=== PATIENT | female | born 1985 | race Caucasian/White ===

== ENCOUNTER → 2020-03-14 09:57 | Outpatient (CLI) | payer BC, SELFPAY ==
[2020-03-14 12:27] LABS: Hematocrit 37.9 % (36-46); Hemoglobin 12.5 g/dL (12.0-16.0); Mean Corpuscular HGB Conc 33.1 % (30-36); Mean Corpuscular Hemoglobin 28.3 PG (26-34); Mean Corpuscular Volume 85.6 fL (80-100); Platelet Count 230 X10^3/uL (150-400); Red Blood Cell Count 4.42 X10^6/uL (4.0-5.2); Red Cell Distribution Width 12.7 % (11.6-14.8); White Blood Cell Count 6.5 X10^3/uL (4.5-11.0)
[2020-03-14 12:45] LABS: Hemoglobin A1C% w Est Avg Glu 5.1 % (4.0-6.0)
[2020-03-14 13:07] LABS: Alanine Aminotransferase 15 IU/L (<35); Albumin 3.7 g/dL (3.5-5.0); Albumin Globulin Ratio 1.2 (1.0-2.8); Alkaline Phosphatase 62 U/L (38-126); Aspartate Aminotransferase 20 IU/L (14-36); BUN Creatinine Ratio 23.7 (6-22); Bilirubin Total 0.4 mg/dL (0.2-1.3); Blood Urea Nitrogen 14 mg/dL (7-17); Calcium 9.1 mg/dL (8.4-10.2); Carbon Dioxide 25 mmol/L (22-32); Chloride 107 mmol/L (98-107); Cholesterol 186 mg/dL (140-199); Estimated Glomerular Filt Rate > 60.0 mL/min (>60); Globulin 3.1 g/dL (1.7-4.1); Glucose 73 mg/dL (70-100); HDL Cholesterol 54 mg/dL (40-60); HEMOLYSIS < 15 (0-50); LDL Cholesterol Calculated 100 mg/dL (<100); Potassium 4.2 mmol/L (3.4-5.1); Sodium 138 mmol/L (137-145); Total Protein 6.8 g/dL (6.3-8.2); Triglycerides 159 mg/dL (35-150)
[2020-03-14 13:43] LABS: TSH w/ Reflex to FT4 3.01 uIU/mL (0.47-4.68)
== END ==
PROVIDERS: PCP Registered Nurse Diabetes Educator; Referring Provider Obstetrics & Gynecology; Visit Provider Obstetrics & Gynecology
DX: E28.2 Polycystic ovarian syndrome (principal); E66.9 Obesity, unspecified; Z00.00 Encounter for general adult medical examination without abnormal findings
CPT/HCPCS: 36415; 80053; 80061; 82306; 83036; 84443; 85027

== ENCOUNTER → 2020-06-12 14:58 | Outpatient (CLI) | payer BC, SELFPAY ==
--- NOTE | 2020-06-12 15:03 | DIET.PN ---
Dietary Progress Note Assessment: 34y F referred to nutrition by PCP for help with weight loss related to PCOS and psoriatic arthritis. 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 PCOS Hx: started menstruating heavily in 6th grade, amenhhorea in 8th grade, dx c PCOS, has been on BC since then, stopped for a while but acne got bad so has started again (since 2014) Pt currently going to therapy, quite insightful, and on adderall (not on metformin, didn't like it) Psoriatic Arthritis Hx: in SI joint, discovered by visiting rhumatologist Weight Hx: pt hasn't been below 200# since middle school. Has not been under 260# since 2010, pt is currently 266# down from 283# since spring, partly due to [facility] soy (stopped recently) and partly due to Adderall. Pt went to [employer], moved here from [place], [place] in August 2019. Usual Day: wakes 630-730am, gets out of bed 8am, gets ready for day Makes Breakfast: breakfast shake- collagen peptides, almond milk (or lactaid), frozen fruit, emergen-c or pb&j sandwich, a couple sausage and toast, oatmeal c premier protein gets to work 9am, works until noon then has lunch lunch- pb&j or tuna sandwich, half apple, small bag carrots, dill pickle chips works again until 4-5pm goes home to figure out dinner- snacks sometimes, crackers cheese and sausage Dinner 5-8pm: meatballs c veggies and orzo, hamburgers, fish, mini red olivo pizza some evening cravings, notices ADHD meds start to wear off- brownie dough goes to bed 1030pm pt is good water drinker also plain fizzy, no coffee Likes: carrots, snap peas, onions Likes: grapes, apples doesn't like tart flavors-not big burns fan no cooked spinach, brussels sprouts, artichokes, olives, doesn't like salads as meals doesn't eat enough beans but more open than used to be- Vagabond's chili, canned chilis, hummus, refried beans, doesn't like yogurt loves buttermilk ranch aversion to chicken sort of, but not liked baked feels like she eats too much processed meat products: LS carrillo, kielbasa, sausages WT: 266# UBW: 283# BMI:48 Labs: A1c 5.1 Nutrition Diagnosis: morbid obesity r/t PCOS and undesirable food choices aeb pt has BMI 48, hx of food power struggles c etoh using parent, pt reliant on processed foods such as bread, pizza, sausages. Interventions: 1. To support weight regulation, educated pt on plate balance using handout and food models. Encouraged pt to create meals and snacks which are 1/4 pro, 1/4 cho, and 1/2 F/nonstarchy veggies to ensure nutritional adequacy and appetite satisfaction. 2. To support weight regulation, using handout, introduced pt to hunger scale to start to identify her hunger and fullness cues. Pt will start eating at a 3 and stopping at an 8 to better understand ideal meal timing and portion sizes for her body. Pt will use hunger scale to identify when she is emotional/boredom/mindlessly eating and will discuss this with her therapist as desired to start developing better coping mechanisms that are not food related. 3. To support weight regulation and insulin resistance, encouraged pt to increase fiber intake. Provided handout and goal of 25g fiber per day. EER: 95g PRO (0.8g/kg), 30-45g CHO per meal, 25g fiber per day Monitoring/Evaluations: f/u in 3w to assess progress and problem solve barriers, add peppermint and green or oolong tea
== END ==
PROVIDERS: PCP Registered Nurse Diabetes Educator; Referring Provider Registered Nurse Diabetes Educator; Visit Provider Registered Nurse Diabetes Educator
DX: E28.2 Polycystic ovarian syndrome (principal); L40.50 Arthropathic psoriasis, unspecified; E66.9 Obesity, unspecified; Z68.42 Body mass index [BMI] 45.0-49.9, adult; Z71.3 Dietary counseling and surveillance
CPT/HCPCS: 97802

== ENCOUNTER → 2020-06-12 15:00 | Outpatient (CLI) | payer BC, SELFPAY ==
[2020-06-12 17:57] LABS: Add Manual Diff / Slide Review NO; Basophils Absolute Auto 0 /uL (0-100); Basophils Percent Auto 0.4 % (0-2); Eosinophils Absolute Auto 200 /uL (0-450); Eosinophils Percent Auto 2.3 % (2-4); Hematocrit 37.6 % (36-46); Hemoglobin 12.7 g/dL (12.0-16.0); Lymphocytes Absolute Auto 1900 /uL (1100-4500); Lymphocytes Percent Auto 24.9 % (25-40); Mean Corpuscular HGB Conc 33.8 % (30-36); Mean Corpuscular Hemoglobin 28.5 PG (26-34); Mean Corpuscular Volume 84.3 fL (80-100); Monocytes Absolute Auto 400 /uL (0-900); Monocytes Percent Auto 4.5 % (3-14); Neutrophils Absolute Auto 5300 /uL (1500-7000); Neutrophils Percent Auto 67.9 % (50-75); Platelet Count 268 X10^3/uL (150-400); Red Blood Cell Count 4.47 X10^6/uL (4.0-5.2); Red Cell Distribution Width 12.9 % (11.6-14.8); White Blood Cell Count 7.8 X10^3/uL (4.5-11.0)
[2020-06-12 18:11] LABS: Alanine Aminotransferase 15 IU/L (<35); Albumin 3.9 g/dL (3.5-5.0); Albumin Globulin Ratio 1.3 (1.0-2.8); Alkaline Phosphatase 55 U/L (38-126); Aspartate Aminotransferase 20 IU/L (14-36); BUN Creatinine Ratio 21.2 (6-22); Bilirubin Total 0.3 mg/dL (0.2-1.3); Blood Urea Nitrogen 14 mg/dL (7-17); C-Reactive Protein Quant 3.2 mg/dL (<1.0); Calcium 9.3 mg/dL (8.4-10.2); Carbon Dioxide 28 mmol/L (22-32); Chloride 104 mmol/L (98-107); Estimated Glomerular Filt Rate > 60.0 mL/min (>60); Glucose 83 mg/dL (70-100); HEMOLYSIS < 15 (0-50); Potassium 4.3 mmol/L (3.4-5.1); Sodium 137 mmol/L (137-145); Total Protein 6.9 g/dL (6.3-8.2)
[2020-06-12 18:17] LABS: Erythrocyte Sedimentation Rate 46 MM/HR (0-20)
== END ==
PROVIDERS: PCP Registered Nurse Diabetes Educator; Referring Provider Internal Medicine Rheumatology; Visit Provider Internal Medicine Rheumatology
DX: L40.59 Other psoriatic arthropathy (principal); Z79.899 Other long term (current) drug therapy
CPT/HCPCS: 36415; 80053; 85025; 85651; 86140

== ENCOUNTER → 2020-07-03 14:53 | Outpatient (CLI) | payer BC, SELFPAY ==
--- NOTE | 2020-07-03 15:02 | DIET.PN ---
Dietary Progress Note 34y F attending second nutrition visit for management of her PCOS and morbid obesity. Pt has been working on maintaining 45g CHO per meal and using hunger scale to identify appropriate portion sizes. Pt purchased carrots and snap peas to keep fresh in house. Pt is noticing carb intake, trying to 45ish per meal because notices she eats on the higher end of that. Noticed her frozen veggies are higher in carb-carrot, corn, peas. Doesn't want to eat the same thing every day, okay making 2-3 servings at a time. Pt interested in dinner options for one, convenient. Per culinary education, pt has knife skills so not worried about chopping veggies. Pt feels as her medication is wearing off she craves milk chocolate in the evening. Pt has been using the hunger scale, feels she slides easily from fullness to hunger. Unsure if skewed hunger scale perception or medication reaction. Pt will continue using scale to try to identify each level of hunger easier. Interventions: We discussed her breakfast and lunches as healthy options. We will continue to work on getting dinners to be less reliant on ultraprocessed ingredients and to mindfully incorporate more non-starchy veg. Provided pt c handouts on anti-inflammatory meal ideas, power bowls, and healthy snacks. Redesigned her go to meal of premade meatballs c pesto, orzo, and frozen mixed veggies to sub chicken or turkey meatballs or homemade and use a different frozen veggie such as broccoli, zucchini, onion... Pt likes roasted veggies, interested in one sheet villalobos recipes using pork loin. RD will send pt healthier mac n cheese recipe from patient menu. F/u in 2w to assess progress and problem solve barriers.
== END ==
PROVIDERS: PCP Registered Nurse Diabetes Educator; Referring Provider Registered Nurse Diabetes Educator; Visit Provider Registered Nurse Diabetes Educator
DX: E28.2 Polycystic ovarian syndrome (principal); E66.01 Morbid (severe) obesity due to excess calories; Z71.3 Dietary counseling and surveillance
CPT/HCPCS: 97803

== ENCOUNTER → 2020-07-26 10:50 | Outpatient (CLI) | payer BC, SELFPAY ==
--- NOTE | 2020-07-26 11:00 | DIET.PN ---
Dietary Progress Note 34y F attending f/u for PCOS and morbid obesity. Pt continues to use hunger scale to better understand her hunger and fullness cues. Pt has switched to non-starchy vegetables with meals and is liking this adjustment. Pt is cycling a variety of proteins into her dinners including chicken meatballs, tofu, whereas before she relied heavily on pork meatballs. Pt still craving chocolate in evening. Pt is doing daily strength training exercises and went on two walks this week. Pt asked for her measurements to be done on a regular basis and is curious if her portion sizes are too large. Has current goal of 6k steps per day which she achieves 60% of the time. Measurements: arm: 17.0in le.25in torso: 64in HT: 5'2.5 WT: 266# Pt will work towards daily walks whether on treadmill or outside. Pt will keep food record for 1w and bring to next appointment for portion assessment. Pt received overnight oats recipe and will use this as a base for an evening snack. f/u in 2 w to assess progress and problem solve barriers.
== END ==
PROVIDERS: PCP Registered Nurse Diabetes Educator; Referring Provider Registered Nurse Diabetes Educator; Visit Provider Registered Nurse Diabetes Educator
DX: E66.01 Morbid (severe) obesity due to excess calories (principal)
CPT/HCPCS: 97803

== ENCOUNTER → 2020-07-26 15:53 | Outpatient (CLI) | payer BC, SELFPAY ==
[2020-07-26] MEDS: COVID-19 VACC, Ad26(JANSSEN)/PF 0.5 ML IM (16:08)
== END ==
PROVIDERS: PCP Registered Nurse Diabetes Educator; Visit Provider Internal Medicine
DX: Z23 Encounter for immunization (principal)
CPT/HCPCS: 0031A; 91303

== ENCOUNTER → 2020-08-10 09:52 | Outpatient (CLI) | payer BC, SELFPAY ==
--- NOTE | 2020-08-10 09:57 | DIET.PN ---
Dietary Progress Note 34y F [address] f/u for help with weight management. 265# (-1#) Pt kept food journal for the past week with hunger scale, foods eaten and proportions of foods. Pt has switched from regular chocolate to stevia sweetened chocolate and likes it as well. This is a good modification for patient as she has a sweet tooth for milk chocolate and would eat it daily often consuming 20-40g added sugar just from this, pt now consuming 0g added sugar from chocolate. Pt did not have a great two weeks of exercise because her accountability corbin is in a time of transition and she wasn't sleeping well. Interventions: 1. Gave encouragement that pt is making good food choices in the appropriate proportions to fuel her body at this time. Pt has cut down on added sugar and is mindfully increasing protein at meals. 2. Encouraged pt to keep food intake about the same for the next two weeks and to focus energy on getting back to her physical activity routine of strength exercises and walking. Pt goals for the next two weeks: Pt will do exercises nightly and will try walking on her treadmill for 10 minutes each morning before work. Pt will continue to aim for 6k steps/d. F/u in 2 w to assess progress and problem solve barriers.
== END ==
PROVIDERS: PCP Registered Nurse Diabetes Educator; Referring Provider Registered Nurse Diabetes Educator; Visit Provider Registered Nurse Diabetes Educator
DX: E66.9 Obesity, unspecified (principal); Z71.3 Dietary counseling and surveillance
CPT/HCPCS: 97803

== ENCOUNTER → 2020-08-24 12:19 | Outpatient (CLI) | payer BC, SELFPAY ==
--- NOTE | 2020-08-24 12:32 | DIET.PN ---
Dietary Progress Note 34y F attending f/u for help with managing PCOS and body weight. Pt has had work stresses over the past two weeks leading to big realizations that she values her work and helping others to the detriment of her own health. Pt feel the best when she wakes up early to eat breakfast, meal prep lunch, and walk on the treadmill for 10 minutes before she leaves for work. Pt would like to start going home for her lunch breaks as well in order to support her own self care. We discussed strategies to support her self-care goals including setting reminders to leave for lunch, supportive messages hung around her home, and noticing the lingering positive benefits of a self-care routine. Pt feels the biweekly check ins are beneficial for her to build these new patterns and for accountability on healthy eating and exercise. F/u in 2w to assess progress and problem solve barriers.
== END ==
PROVIDERS: PCP Registered Nurse Diabetes Educator; Referring Provider Registered Nurse Diabetes Educator; Visit Provider Registered Nurse Diabetes Educator
DX: E28.2 Polycystic ovarian syndrome (principal); Z71.3 Dietary counseling and surveillance
CPT/HCPCS: 97803

== ENCOUNTER → 2020-09-07 13:54 | Outpatient (CLI) | payer BC, SELFPAY ==
--- NOTE | 2020-09-07 13:56 | DIET.PN ---
Dietary Progress Note 34y F c PCOS and morbid obesity attending 2w f/u c dietitian. Pt has been experiencing unusual stress over the past few weeks, she is down 3 positions at her work so hasn't focused on exercise or eating well. Pt has found herself doing DoorDash for dinners including once to [address]. Pt noticed she did not do a full grocery shop this week which made her more likely to eat out. Pt is eating breakfast at home and often brings lunch to work. DoorDash options- Vagabond, Willi [employer], [place], [employer], [employer], [employer]- options are not conducive to her goal of healthy eating and weight loss. Interventions: 1. Spent time together thinking of quick dinner options pt would be realistically able to prepare: Quick Dinner Options: grilled cheese or grilled ham and cheese toasted panini style sandwich toasted PB&J open face tuna melt Grilled items: hamburger joanne melt look for salmon patties at [employer] 2. Discussed importance of planning for both exercise and food as times of stress occur frequently. Pt will do a full grocery shop this week and will look for a few frozen items which can go in the freezer for times like this. Provided pt handout on healthy frozen meals including targets for specific nutrients (pro, sodium, fiber, carbs). F/u in 2w to assess progress and problem solve barriers.
== END ==
PROVIDERS: PCP Registered Nurse Diabetes Educator; Referring Provider Registered Nurse Diabetes Educator; Visit Provider Registered Nurse Diabetes Educator
DX: E28.2 Polycystic ovarian syndrome (principal)
CPT/HCPCS: 97803

== ENCOUNTER → 2020-09-18 14:53 | Outpatient (CLI) | payer BC, SELFPAY ==
--- NOTE | 2020-09-19 13:14 | DIET.PN ---
Dietary Progress Note RD f/u for pt c PCOS and morbid obesity. Pt is going out of town next week for a vacation. 30 minute visit spent c strategies for ways to get physical activity and encourage healthy food options on the go. Discussed finding [place] to walk in with friends, doing PT exercises each morning, and choosing sightseeing activities involving movement such as window shopping, sculpture gardens, etc. Pt will be eating at [email or web address] and [employer]. Discussed ordering calorie free beverages and ensuring solid protein source with veggies at each meal. Discussed sharing entree items with friends and ordering side of broccoli for table. f/u scheduled for 3 w to assess progress and problem solve barriers.
== END ==
PROVIDERS: PCP Registered Nurse Diabetes Educator; Referring Provider Registered Nurse Diabetes Educator; Visit Provider Registered Nurse Diabetes Educator
DX: E28.2 Polycystic ovarian syndrome (principal); E66.01 Morbid (severe) obesity due to excess calories; Z71.3 Dietary counseling and surveillance
CPT/HCPCS: 97803

== ENCOUNTER → 2020-10-19 12:53 | Outpatient (CLI) | payer BC, SELFPAY ==
--- NOTE | 2020-10-19 13:00 | DIET.PN ---
Dietary Progress Note 34y F attending RD f/u for help with morbid obesity and PCOS. Pt reconnected with her exercise partner and started taking daily walks in [place] at 4pm each day. Pt has been going home to eat lunch daily and is focused on sitting down to mindfully eat her breakfast each morning. Pt is ensuring she gets servings of fruits and vegetables daily. Weight: 264# (-2# in 1mo) f/u in 2w to assess progress and problem solve barriers.
== END ==
PROVIDERS: PCP Registered Nurse Diabetes Educator; Referring Provider Registered Nurse Diabetes Educator; Visit Provider Registered Nurse Diabetes Educator
DX: E66.01 Morbid (severe) obesity due to excess calories (principal); E28.2 Polycystic ovarian syndrome; Z71.3 Dietary counseling and surveillance
CPT/HCPCS: 97803

== ENCOUNTER → 2020-11-02 12:49 | Outpatient (CLI) | payer BC, SELFPAY ==
--- NOTE | 2020-11-02 13:03 | DIET.PN ---
Dietary Progress Note Current weight: 264# Goals for the next two weeks: 1. Focus back on the balanced plate 2. Work towards having Thursday off as pt is currently working 7d/w 3. Try to leave office at 4pm to take a walk f/u in 2w to assess progress and problem solve barriers
== END ==
PROVIDERS: PCP Registered Nurse Diabetes Educator; Referring Provider Registered Nurse Diabetes Educator; Visit Provider Registered Nurse Diabetes Educator
DX: E66.9 Obesity, unspecified (principal); Z71.3 Dietary counseling and surveillance
CPT/HCPCS: 97803

== ENCOUNTER → 2020-11-16 12:51 | Outpatient (CLI) | payer BC, SELFPAY ==
--- NOTE | 2020-11-16 17:39 | DIET.PN ---
Dietary Progress Note 2w f/u for 34y F on help with weight loss for PCOS and morbid obesity. Current weight 261#, pt is down 4# since last visit. Pt not exercising secondary to hot weather but has been practicing portion control. F/u in 2w to continue progress towards goal.
== END ==
PROVIDERS: PCP Registered Nurse Diabetes Educator; Referring Provider Registered Nurse Diabetes Educator; Visit Provider Registered Nurse Diabetes Educator
DX: E28.2 Polycystic ovarian syndrome (principal); E66.01 Morbid (severe) obesity due to excess calories; Z71.3 Dietary counseling and surveillance
CPT/HCPCS: 97803

== ENCOUNTER → 2020-12-04 08:00 | Outpatient (CLI) | payer BC, SELFPAY ==
--- NOTE | 2020-12-04 08:02 | DI.RAD.S_ITS ---
PROCEDURE: XR FINGER LT MIN 2V INDICATIONS: left 2nd digit distal laceration palmar TECHNIQUE: AP hand, 2 views of the 2nd finger(s) acquired. COMPARISON: None. FINDINGS: Bones: No fractures or dislocations. No suspicious bony lesions. Soft tissues: No suspicious soft tissue calcifications. No soft tissue gas or radiopaque foreign body. IMPRESSION: No evidence acute bony abnormality, left 2nd digit. No evidence radiopaque foreign body. Dictated by: Alexx Guerrero M.D. on 12/04/2020 at 9:30 Approved by: Alexx Guerrero M.D. on 12/04/2020 at 9:31
== END ==
PROVIDERS: PCP Registered Nurse Diabetes Educator; Referring Provider Student in an Organized Health Care Education/Training Program; Visit Provider Student in an Organized Health Care Education/Training Program
DX: S61.211A Laceration without foreign body of left index finger without damage to nail, initial encounter (principal); X58.XXXA Exposure to other specified factors, initial encounter
CPT/HCPCS: 73140

== ENCOUNTER → 2020-12-11 13:52 | Outpatient (CLI) | payer BC, SELFPAY ==
--- NOTE | 2020-12-11 13:55 | DIET.PN ---
Dietary Progress Note 34y F attending 2w f/u for dietary surveillance secondary to PCOS and obesity. 263# Goals: 1. Communicate with staff on specific set times she will be working at home, half days or whole. 2. Will have set time when she wakes up and gets out of bed.
== END ==
PROVIDERS: PCP Registered Nurse Diabetes Educator; Referring Provider Registered Nurse Diabetes Educator; Visit Provider Registered Nurse Diabetes Educator
DX: E28.2 Polycystic ovarian syndrome (principal); E66.9 Obesity, unspecified; Z71.3 Dietary counseling and surveillance
CPT/HCPCS: 97803

== ENCOUNTER → 2020-12-11 13:55 | Outpatient (CLI) | payer BC, SELFPAY ==
[2020-12-11 15:46] LABS: Add Manual Diff / Slide Review NO; Basophils Absolute Auto 0 /uL (0-100); Basophils Percent Auto 0.4 % (0-2); Eosinophils Absolute Auto 100 /uL (0-450); Eosinophils Percent Auto 1.4 % (2-4); Hematocrit 37.6 % (36-46); Hemoglobin 12.7 g/dL (12.0-16.0); Lymphocytes Absolute Auto 1600 /uL (1100-4500); Lymphocytes Percent Auto 17.5 % (25-40); Mean Corpuscular HGB Conc 33.7 % (30-36); Mean Corpuscular Hemoglobin 28.1 PG (26-34); Mean Corpuscular Volume 83.4 fL (80-100); Monocytes Absolute Auto 300 /uL (0-900); Monocytes Percent Auto 3.4 % (3-14); Neutrophils Absolute Auto 6900 /uL (1500-7000); Neutrophils Percent Auto 77.3 % (50-75); Platelet Count 270 X10^3/uL (150-400); Red Cell Distribution Width 12.8 % (11.6-14.8); White Blood Cell Count 8.9 X10^3/uL (4.5-11.0)
[2020-12-11 17:08] LABS: Erythrocyte Sedimentation Rate 34 MM/HR (0-20)
[2020-12-11 17:14] LABS: Alanine Aminotransferase 19 IU/L (<35); Albumin 3.7 g/dL (3.5-5.0); Albumin Globulin Ratio 1.2 (1.0-2.8); Alkaline Phosphatase 52 U/L (38-126); Aspartate Aminotransferase 21 IU/L (14-36); Bilirubin Total 0.3 mg/dL (0.2-1.3); Blood Urea Nitrogen 14 mg/dL (7-17); C-Reactive Protein Quant 2.6 mg/dL (<1.0); Calcium 9.7 mg/dL (8.4-10.2); Carbon Dioxide 22 mmol/L (22-32); Chloride 107 mmol/L (98-107); Estimated Glomerular Filt Rate > 60.0 mL/min (>60); Glucose 108 mg/dL (70-100); HEMOLYSIS < 15 (0-50); Potassium 3.9 mmol/L (3.4-5.1); Sodium 137 mmol/L (137-145); Total Protein 6.7 g/dL (6.3-8.2)
== END ==
PROVIDERS: PCP Registered Nurse Diabetes Educator; Referring Provider Internal Medicine Rheumatology; Visit Provider Internal Medicine Rheumatology
DX: L40.59 Other psoriatic arthropathy (principal); Z79.899 Other long term (current) drug therapy
CPT/HCPCS: 36415; 80053; 85025; 85651; 86140

== ENCOUNTER → 2020-12-24 16:02 | Outpatient (CLI) | payer BC, SELFPAY ==
--- NOTE | 2020-12-24 16:07 | DIET.PN ---
Dietary Progress Note 265# today Pt had visit from her mom which was joyful and stressful. They ate out several times but pt ordered extra veggies and would choose whole grain carb and keep carb portions in check. Pt has been waking up at 7:15am all week per her goal setting last session leading her to eat a nice breakfast at home. Pt did one day of exercising this week and plans to do it again today. Pt has had some insight to her childhood with food insecurity and needing to overeat to not waste food and to obey her parents. Pt has been able to not clean her plate (waste food) and also eat a larger portion (lots of veggies) than she feels mentally comfortable with over the past few weeks. Pt is flexing her ingrained food rules and considering the repercussions. f/u in 2w to continue developing healthy eating habits.
== END ==
PROVIDERS: PCP Registered Nurse Diabetes Educator; Referring Provider Registered Nurse Diabetes Educator; Visit Provider Registered Nurse Diabetes Educator
DX: Z71.3 Dietary counseling and surveillance (principal)
CPT/HCPCS: 97803

== ENCOUNTER → 2021-01-07 15:53 | Outpatient (CLI) | payer BC, SELFPAY ==
--- NOTE | 2021-01-07 16:56 | DIET.PN ---
Dietary Progress Note 35y F attending RD f/u for PCOS and morbid obesity. 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 Normally pt would consume food to deal with her stresses or indulge in sweets, but pt focused on healthy eating (protein, veggies). Discussed her upcoming trip to [place] and navigating the long drive and staying in hotel. Pt will bring Premier Protein shakes to have for breakfast and in her tea as a creamer. Pt will pack fruit and protein in case meals are high carb at the event center. Pt is weight stable from 2w ago, no gains, no losses. f/u in 2w.
== END ==
PROVIDERS: PCP Registered Nurse Diabetes Educator; Referring Provider Registered Nurse Diabetes Educator; Visit Provider Registered Nurse Diabetes Educator
DX: E28.2 Polycystic ovarian syndrome (principal); E66.9 Obesity, unspecified; Z71.3 Dietary counseling and surveillance
CPT/HCPCS: 97803

== ENCOUNTER → 2021-01-21 10:45 | Outpatient (CLI) | payer BC, SELFPAY ==
--- NOTE | 2021-01-21 10:48 | DIET.PN1 ---
Dietary Progress Note 35y F attending 2w f/u for help with morbid obesity and PCOS, current weight 266#. Pt has started therapy and physical therapy recently. Pt continues to eat meals mostly at home, trying to avoid DoorDash as much as possible. Was on [employer] trip last week and brought protein drinks to have with continental breakfast they provided. Only ate half bagel instead of full bagel, felt like a success. Pt often goes to [employer] after [facility] on Sundays for coffee and treat. This week she had lunch ready at home so made choice to not go to [employer].
== END ==
PROVIDERS: PCP Registered Nurse Diabetes Educator; Referring Provider Registered Nurse Diabetes Educator; Visit Provider Registered Nurse Diabetes Educator
DX: E66.01 Morbid (severe) obesity due to excess calories (principal); E28.2 Polycystic ovarian syndrome; Z71.3 Dietary counseling and surveillance
CPT/HCPCS: 97803

== ENCOUNTER → 2021-02-04 15:48 | Outpatient (CLI) | payer BC, SELFPAY ==
--- NOTE | 2021-02-04 16:02 | DIET.PN1 ---
Dietary Progress Note 262# (-4# in 2w) Pt attending PT once weekly and has been doing her exercises nightly. Pt feels this week has been a good one as far as meal planning. She has only eaten out twice in two weeks and is making less processed foods at home. While it is taking longer, she feels better about it and is supporting her health more. Pt purchased [employer] protein drinks to have on hand when she gets home from work and is hungry before dinner is ready. RD and patient will come up with cooking plan for 04/01-05/10 during her busy season at work to keep meal planning a focus. Pt enjoys [employer], has 4 qt instapot she would like to use. f/u in 2w to assess progress and problem solve barriers.
== END ==
PROVIDERS: PCP Registered Nurse Diabetes Educator; Referring Provider Registered Nurse Diabetes Educator; Visit Provider Registered Nurse Diabetes Educator
DX: Z71.3 Dietary counseling and surveillance (principal)
CPT/HCPCS: 97803

== ENCOUNTER → 2021-02-18 15:52 | Outpatient (CLI) | payer BC, SELFPAY ==
--- NOTE | 2021-02-18 15:55 | DIET.OUTPTC ---
Dietary Outpatient Consultation Note Consultation Date: 02/18/2021 35[address] attending RD f/u for help with healthy eating for PCOS and morbid obesity. 261# (-1# from 2w ago) Pts work has been busy, ate at [employer] twice this week, felt dehydrated with headache several times too. Pt does not like that she ate at [employer] and would prefer more nourishing foods, but found peace with the choice due to work load. Pt has work trip this week down to [place], [place]. Pt packing high protein snacks for hotel and breakfasts and will focus on choosing high PRO foods with veggies at any meal she eats out. Interventions: 1. Collaborated c pt on on Emergency Work Food lists. Pt will continue to be busy at work for the rest of this calendar year. Pt and RD collaborated on document focusing on protein and fiber rich foods to keep on hand at work to reduce chance patient will order fast food or take out. Printed list for pt to take shopping. F/u in 2 wks. Electronically Signed by: Radha Phoenix 02/18/21 15:55 Clinical Dietitian [address] [address]
== END ==
PROVIDERS: PCP Registered Nurse Diabetes Educator; Referring Provider Registered Nurse Diabetes Educator; Visit Provider Registered Nurse Diabetes Educator
DX: E28.2 Polycystic ovarian syndrome (principal); E66.01 Morbid (severe) obesity due to excess calories; Z71.3 Dietary counseling and surveillance
CPT/HCPCS: 97803

== ENCOUNTER → 2021-03-04 15:48 | Outpatient (CLI) | payer BC, SELFPAY ==
--- NOTE | 2021-03-04 16:15 | DIET.PN1 ---
Dietary Progress Note 35y F attending 2w f/u for help with healthy eating. Pt continues to have high stress and commitment levels at her job as they are understaffed and they are moving into the holiday season. Pt continues to make progress on maintaining healthy eating habits despite the business. Pt desires healthy recipes that are quick to prepare using instapot to get her through the holiday season so she does not rely on take out. Wt: 261# Interventions: 1. Looked up and printed 10 [employer]ap[employer] recipes with patient which fit her nutrition reccs for dinner and that she would enjoy. Printed 4 weeks of meal planning guides so pt can write grocery list and todo list with weekly guide to keep on refrigerator. Monitoring/Evaluations: f/u 2 weeks Electronically Signed by: Radha Phoenix 03/04/21 16:15 Clinical Dietitian [address] [address]
== END ==
PROVIDERS: PCP Registered Nurse Diabetes Educator; Referring Provider Registered Nurse Diabetes Educator; Visit Provider Registered Nurse Diabetes Educator
DX: F43.9 Reaction to severe stress, unspecified (principal); Z71.3 Dietary counseling and surveillance
CPT/HCPCS: 97803

== ENCOUNTER → 2021-03-18 15:53 | Outpatient (CLI) | payer BC, SELFPAY ==
--- NOTE | 2021-03-18 15:57 | DIET.PN1 ---
Dietary Progress Note Assessment: 35y F attending f/u nutrition visits for help with reestablishing neutral relationship with food. Pt continues to work on cooking at home and avoiding DoorDash services. She is avoiding skipping meals as this is often a trigger to order take out. Pt is practicing mindfulness when she is eating and while tries to eat healthfully, she is not practicing restriction as this can lead to binging or negative self-talk. Pt has been enjoying attending physical therapy and seeing good results. Pts body is strengthening and she is losing some weight (3# in 2w) likely secondary to more muscle mass burning calories as well as increased physical activity secondary to weight bearing PT exercises. Wt: 258# (-3#) Interventions: 1. Reinforced pts positive coping mechanisms during prolonged times of being stressed and short-staffed at work. Reiterated importance of stocking work fridge with healthy, fiber filled food items to have healthy choices on hand when she cannot go home to eat lunch. Pt has partial bag packed to bring to work and agreed to bring it in now rather than wait for all items to be available. This way she will start using the items now. Monitoring/Evaluations: f/u in 2w to support pts eating habits during the holidays. Electronically Signed by: Radha Phoenix 03/18/21 15:57 Clinical Dietitian [address] [address]
== END ==
PROVIDERS: PCP Registered Nurse Diabetes Educator; Referring Provider Registered Nurse Diabetes Educator; Visit Provider Registered Nurse Diabetes Educator
DX: E66.9 Obesity, unspecified (principal); Z71.3 Dietary counseling and surveillance; Z68.41 Body mass index [BMI] 40.0-44.9, adult
CPT/HCPCS: 97803

== ENCOUNTER → 2021-04-01 15:55 | Outpatient (CLI) | payer BC, SELFPAY ==
--- NOTE | 2021-04-01 17:11 | DIET.PN1 ---
Dietary Progress Note 35y F attending RD f/u for obesity. 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 Pt feels this affects her self-care including nutrition and exercise. Pt will be moving next Thursday. We spent visit discussing eating while packing home, being in transition, and while unpacking home. 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 Electronically Signed by: Radha Phoenix 04/01/21 17:11 Clinical Dietitian [address] [address]
== END ==
PROVIDERS: PCP Registered Nurse Diabetes Educator; Referring Provider Registered Nurse Diabetes Educator; Visit Provider Registered Nurse Diabetes Educator
DX: E66.9 Obesity, unspecified (principal)
CPT/HCPCS: 97803

== ENCOUNTER → 2021-04-15 16:42 | Outpatient (CLI) | payer BC, SELFPAY ==
--- NOTE | 2021-04-15 16:43 | DIET.PN1 ---
Dietary Progress Note Assessment: Pt moved over weekend down to [place] to take new role with [employer]. Pt was sleeping much of the weekend but feels she needed the rest secondary to being overworked for past year. Pt starts new role on Thursday of this week. Pt is eager to see what facilities are like. We spent visit discussing work life balance, building self-care habits of nutrition and exercise into new role and life. Pt is getting familiar with local grocery stores and knows of physical therapy office she can establish with. Discussed crock pot meals, limiting DoorDash, and initiating walking meetings with coworkers. Monitoring/Evaluations: f/u via telehealth in 2w RD in hospital office, Mary Gordillo in her home office conducting visit via [employer] soy using computer video chat. Electronically Signed by: Radha Phoenix 04/15/21 16:43 Clinical Dietitian [address] [address]
== END ==
PROVIDERS: PCP Registered Nurse Diabetes Educator; Referring Provider Registered Nurse Diabetes Educator; Visit Provider Registered Nurse Diabetes Educator
DX: Z71.3 Dietary counseling and surveillance (principal)
CPT/HCPCS: 97803

== ENCOUNTER → 2021-04-29 16:47 | Outpatient (CLI) | payer BC, SELFPAY ==
--- NOTE | 2021-04-29 16:48 | DIET.OUTPTC ---
Dietary Outpatient Consultation Note Consultation Date: 04/29/2021 35[address] F attending RD f/u via telehealth for help with weight management secondary to PCOS. Pt working on physical therapy exercises daily in new office setting. Pt is doing good job meal planning and prepping to have home cooked dinner and packing lunches for work. Pt having many long days for the next couple weeks because of ji work so making large batch of ground chicken and brown rice dish to eat from for the week to avoid high kcal eating out. Pt working on compiling healthy shelf stable foods to keep at work including protein drinks and high pro, high fiber items. f/u in 2w (VSEE from her office, this provider from hospital office using video call) Electronically Signed by: Radha Phoenix 04/29/21 16:48 Clinical Dietitian [address] [address]
== END ==
PROVIDERS: PCP Registered Nurse Diabetes Educator; Referring Provider Registered Nurse Diabetes Educator; Visit Provider Registered Nurse Diabetes Educator
DX: E28.2 Polycystic ovarian syndrome (principal); Z71.3 Dietary counseling and surveillance
CPT/HCPCS: 97803

== ENCOUNTER → 2021-05-15 13:11 | Outpatient (CLI) | payer BC, SELFPAY ==
--- NOTE | 2021-05-15 14:15 | DIET.PN1 ---
Dietary Progress Note Pt visit done in real time using telehealth Vsee video soy between pt Mary Gordillo at her home and DANIEL Phoenix in hospital office. Pt reports doing well with nutrition and exercise over the holidays. Pt lives alone and has made several meals for herself instead of ordering out. Pt has been doing morning yoga and PT exercises as well. Pt working on reframing self-talk when it comes to body image. Pt framing eating vegetables and exercising as positive reward for body rather than punishment or shame related activity. Pt is seeing slow weight loss, ~260# and still feels she wants changes to lifestyle rather than crash diet. F/u in 2w to continue building and reinforcing positive nutrition behaviors. Electronically Signed by: Radha Phoenix 05/15/21 14:15 Clinical Dietitian [address] [address]
== END ==
PROVIDERS: PCP Registered Nurse Diabetes Educator; Referring Provider Registered Nurse Diabetes Educator; Visit Provider Registered Nurse Diabetes Educator
DX: E66.01 Morbid (severe) obesity due to excess calories (principal); E28.2 Polycystic ovarian syndrome
CPT/HCPCS: 97803

== ENCOUNTER → 2021-05-27 17:31 | Outpatient (CLI) | payer BC, SELFPAY ==
--- NOTE | 2021-05-27 17:32 | DIET.PN1 ---
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 Went for 40min walk on Thursday to explore her neighborhood. [place] reasonably safe to walk during daytime hours. Bought [employer] system and did body weight exercises both Thursday and Thursday. [place] proud of herself. Packing lunch for self, gnocchi with chicken, green beans. Sleep quality is improved with lower stress job. Pt came to conclusion ?The pain of discipline better than the pain of neglect? telehealth f/u in 2w to continue counseling Electronically Signed by: Radha Phoenix 05/27/21 17:32 Clinical Dietitian [address] [address]
== END ==
PROVIDERS: PCP Registered Nurse Diabetes Educator; Referring Provider Registered Nurse Diabetes Educator; Visit Provider Registered Nurse Diabetes Educator
DX: E66.01 Morbid (severe) obesity due to excess calories (principal); E28.2 Polycystic ovarian syndrome
CPT/HCPCS: 97803

== ENCOUNTER → 2021-06-10 17:11 | Outpatient (CLI) | payer BC, SELFPAY ==
--- NOTE | 2021-06-10 17:14 | DIET.PN1 ---
Dietary Progress Note 35y F attending 2w f/u via telehealth for help with morbid obesity and healthy behavior change. Pt feels with her new job having less stress associated with it, she is taking better care of herself. Pt has been going for walks and cooking more vegetables at home. Pt bought book yesterday called 5 minute yoga and plans to break up sedentary time in the day with these poses. Pt establishing with new PCP in her new neighborhood tomorrow and will ask for physical therapy referral to continue working on her physical conditioning. Electronically Signed by: Radha Phoenix 06/10/21 17:14 Clinical Dietitian [address] [address]
== END ==
PROVIDERS: Referring Provider Registered Nurse Diabetes Educator; Visit Provider Registered Nurse Diabetes Educator
DX: E66.01 Morbid (severe) obesity due to excess calories (principal); Z71.3 Dietary counseling and surveillance
CPT/HCPCS: 97803

== ENCOUNTER → 2021-06-24 15:47 | Outpatient (CLI) | payer BC, SELFPAY ==
--- NOTE | 2021-06-24 16:02 | DIET.PN1 ---
Dietary Progress Note 2w telehealth check in with 35y F with PCOS and morbid obesity. Pt feels she is eating out more frequently than when she lived in [place]. Attributes to being tired, wanting a reward, or not being prepared for a meal. Pt most often orders [employer] from home and has delivered. Discussed importance of more carefully scrutenizing take out opportunities as they tend to provide bigger portions, more salt, sugar, carbs, and less dietary fiber, F/V. Pt will begin to explore her relationship to eating out over next few weeks. 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 Pt will also start asking herself if there is anything in the house she can eat instead of getting take out. Pt noticed she gets hungry and tired after eating pasta. This occurred after a meal of [employer]. Discussed PCOS and insulin response. Pt will test higher protein intake with meal and substituting high pro or whole grain pasta to see if more favorable. F/u in 1mo via telehealth for continued support. Electronically Signed by: Radha Phoenix 06/24/21 16:02 Clinical Dietitian [address] [place] [address]
== END ==
PROVIDERS: Referring Provider Registered Nurse Diabetes Educator; Visit Provider Registered Nurse Diabetes Educator
DX: E28.2 Polycystic ovarian syndrome (principal); E66.01 Morbid (severe) obesity due to excess calories; Z71.3 Dietary counseling and surveillance
CPT/HCPCS: 97803

== ENCOUNTER → 2021-07-22 16:15 | Outpatient (CLI) | payer BC, SELFPAY ==
--- NOTE | 2021-07-22 16:42 | DIET.PN1 ---
Dietary Progress Note 35y F attending RD f/u via telehealth for PCOS. Pt got recent lab work showing great improvements: FBG 78 (108), A1c 5.0 (5.1), TG 83 (159). Pt went to [facility] for a trip. Stayed active the whole time walking around, made mostly great food choices but did allow herself some fun foods while at [employer] and a few evenings with friends. Pt had continental breakfast at conference, noticed high carb items so talked with host who made hb eggs available. Good feedback from participants regarding the increased protein food option. Pt considering membership to [employer] for reason to exercise and walk around more during summer season. Pt has not eaten out much at home since our last visit. She has realized ordering out meals is an automatic thought and can often identify that and make alternate plans. f/u in 2w. Electronically Signed by: Radha Phoenix 07/22/21 16:42 Clinical Dietitian [address] [address]
== END ==
PROVIDERS: Referring Provider Registered Nurse Diabetes Educator; Visit Provider Registered Nurse Diabetes Educator
DX: E28.2 Polycystic ovarian syndrome (principal)
CPT/HCPCS: 97803

== ENCOUNTER → 2021-09-30 15:46 | Outpatient (CLI) | payer BC, SELFPAY ==
--- NOTE | 2021-09-30 15:58 | DIET.CONS ---
Dietary Consultation Note 35y F attending f/u for morbid obesity via telehealth from her kitchen table, RD in hospital office, pt agrees to telehealth format. Pt enjoyed her trip to [place] except the time change. Pt enjoyed being active, eating good food and hanging out on beach. Pt feels she was mindful of her eating habits, being careful with portion sizes, portion sizes of rice, didn't gorge herself like she would never have it again. Pt gaining better awareness of hunger rhythms. Tried passionfruit and guava. Pt trying to eat at home unless work meeting. 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 Discussed changing up vegetable routine using [employer], shopping at [employer], meal planning, thinking about pickled vs fresh vs cooked. f/u in 2w to continue progress Electronically Signed by: Radha Phoenix 09/30/21 15:58 Clinical Dietitian [address] [address]
== END ==
PROVIDERS: Referring Provider Registered Nurse Diabetes Educator; Visit Provider Registered Nurse Diabetes Educator
DX: E66.01 Morbid (severe) obesity due to excess calories (principal); Z71.3 Dietary counseling and surveillance
CPT/HCPCS: 97803

== ENCOUNTER → 2021-11-11 16:08 | Outpatient (CLI) | payer BC, SELFPAY ==
--- NOTE | 2021-11-11 16:09 | DIET.OUTPTC ---
Dietary Outpatient Consultation Note Consultation Date: 11/11/2021 Patient attending telehealth visit from her home, RD in hospital office, using Vsee video visit, pt agrees to visit. 35y F attending telehealth f/u for help with weight management. Pt hosted vacation [employer] all last week, got 12,000+ steps per day but did eat out more frequently and skipped some meals. Pt proud, she was not going to eat vegetables last night but rinsed off 5 baby lamas peppers and ate c her dinner. 1. Discussed breakfast cereal, pt has been eating Mini Spooners- 12g added sugar in 21 biscuits. Discussed mixing with no-sugar added version to cut the added sugar in half. 2. Collaborated c pt on her goal to have healthy feet. Pt will do her PT exercises daily, wear her braces, and will focus on increasing intake antioxidant rich foods, F/V, whole grains, herbs, spices. Electronically Signed by: Radha Phoenix 11/11/21 16:09 Clinical Dietitian [address] [address]
== END ==
PROVIDERS: PCP Registered Nurse Diabetes Educator; Referring Provider Registered Nurse Diabetes Educator; Visit Provider Registered Nurse Diabetes Educator
DX: Z71.3 Dietary counseling and surveillance (principal)
CPT/HCPCS: 97803

== ENCOUNTER → 2021-11-25 15:54 | Outpatient (CLI) | payer BC, SELFPAY ==
--- NOTE | 2021-11-27 15:19 | DIET.OUTPTC ---
Addendum entered by Radha Phoenix 11/27/21 15:26: consult date 11/25/2021, note written after the fact. Original Note: Dietary Outpatient Consultation Note Consultation Date: 11/27/[address] 35[address] attending RD followup for PCOS and morbid obesity. Pt at her home, RD in hospital office, pt agrees to telehealth video conference using [employer]. Pt counted her breakfast cereal biscuits, 59 when serving size is 15. Pt now counting these in the morning for proper portion size. Pt started making overnight oats and reports she had this for snack several days since last visit in attempt to increase dietary fiber in diet. Pt made bruchetta, had it all week and found it a nice pairing in scrambled eggs for breakfast. 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 Pt has no control of meals, however, has control on what she chooses to put on her plate. Pt will focus on increased veggies and adequate protein. Discussed plan for grocery shopping upon return home from teller. Pt has habit of eating out for several meals as she has nothing at home to eat. Pt will create instacart order prior to leaving for teller and have delivery scheduled for Thursday she returns. This will support her efforts to eat out less often and have fresh foods in home. f/u in 4w to continue monitoring. Electronically Signed by: Radha Phoenix 11/27/21 15:19 Clinical Dietitian [address] [address]
== END ==
PROVIDERS: PCP Registered Nurse Diabetes Educator; Referring Provider Registered Nurse Diabetes Educator; Visit Provider Registered Nurse Diabetes Educator
DX: E28.2 Polycystic ovarian syndrome (principal); E66.01 Morbid (severe) obesity due to excess calories; Z71.3 Dietary counseling and surveillance
CPT/HCPCS: 97803

== ENCOUNTER → 2021-12-23 08:04 | Outpatient (CLI) | payer BC, SELFPAY ==
--- NOTE | 2021-12-23 16:01 | DIET.OUTPTC ---
Dietary Outpatient Consultation Note Consultation Date: 12/23/2021 35y F attending telehealth visit for help with weight management, psoriatic arthritis and PCOS. Pt at home, RD in hospital office, pt agrees to video call using [employer]. Weight: 269# Pt had been higher weight over the past few months, down a little now that she is eating more vegetables and at home more frequently. Pt less interested in number on scale, more interested in seeing results of her new eating habits. Has goal to lose weight without crash dieting. Pt enjoying omelets with tomatoes, basil, balsamic, and feta cheese. Pt had new labs with PCP indicating good metabolic, renal, and hepatic health: Hgb 12.6 FBG 88 AST 12 ALT 17 Cr 0.75 Pt has some residual inflammation from covid infection last week: ESR 35 CRP 2.6 Interventions: 1. Discussed increasing intake zinc containing foods to support immune function with covid. 2. Supportive counseling on meal planning, eating slowly and mindfully, and eating at work. f/u in 2w to continue surveillance and education. Electronically Signed by: Radha Phoenix 12/23/21 16:01 Clinical Dietitian [address] [address]
== END ==
PROVIDERS: PCP Registered Nurse Diabetes Educator; Referring Provider Registered Nurse Diabetes Educator; Visit Provider Registered Nurse Diabetes Educator
DX: L40.50 Arthropathic psoriasis, unspecified (principal); E28.2 Polycystic ovarian syndrome; Z71.3 Dietary counseling and surveillance
CPT/HCPCS: 97803

== ENCOUNTER → 2022-01-06 15:50 | Outpatient (CLI) | payer BC, SELFPAY ==
--- NOTE | 2022-01-06 16:06 | DIET.OUTPTC ---
Dietary Outpatient Consultation Note Consultation Date: 01/06/2022 Patient in work office, RD in hospital office, visit conducted via Vsee video conference and pt agrees to visit. 36y F attending telehealth visit for help with weight management and PCOS. Pt had birthday last week, went out to dinner with her aunt and uncle, had chicken parmesan (saved half for next day) and shared pear cobbler three ways. [employer] this was a success. 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 Pt felt rushed with eating meals and was unable to use her intuitive and mindful eating habits which made her feel poorly. Pt also finds value in fellowship around a table so felt this was stifled as she is a single person living alone. Pt has next 3 weeks off of work. Is going to work on developing more of a dialog with herself around physical activity. Pt currently does not participate in regular physical activity because she feels it is a chore and she doesn't have time for it. Feels she maybe hasn't discovered a type she enjoys and wants to do regularly. Counselled patient on what physical activity may look like for her and difference between planned and spontaneous activity. Pt will practice some spontaneous activity during her vacation and set up a few activity challenges with friends through social apps. F/u in 4 w for continued care and conversation on how physical activity experiment went. Electronically Signed by: Radha Phoenix 01/06/22 16:06 Clinical Dietitian [address] [address]
== END ==
PROVIDERS: PCP Registered Nurse Diabetes Educator; Referring Provider Registered Nurse Diabetes Educator; Visit Provider Registered Nurse Diabetes Educator
DX: E28.2 Polycystic ovarian syndrome (principal)
CPT/HCPCS: 97803

== ENCOUNTER → 2022-02-03 15:47 | Outpatient (CLI) | payer BC, SELFPAY ==
--- NOTE | 2022-02-03 15:48 | DIET.OUTPTC ---
Dietary Outpatient Consultation Note Consultation Date: 02/03/2022 Nutrition f/u conducted using Vsee video conference, pt in her home office, RD in hospital office, pt agrees to visit. Visit: PCOS, weight management and health surveillence Pt spending considerable time with aunt and uncle who are in their late 70s. Used to be aunt would cook for pt and uncle, now that they are more comfortable together and uncle with more health issues, pt noticing they are skipping meals or relying more on take out. Pt found herself in situation she was snacking on Cheez-its or going to sleep hungry because of this. Pt using excellent problem solving skills to work through this to support her and her family's nutrition. Pt considering bringing dish to bake for family when she visits with leftovers so she has appropriate protein rich option in times the others are not eating. Also considering grain/protein/veggie salad to keep in fridge. Next time she plans visit will ask aunt if either option would be helpful. Pt will also pack high pro snacks. Pt having some issues with meals at work. Intermittent work lunch meetings out vs. relying on evening group meal that may not be healthy or preferred option. Discussed having running list of shelf-stable, moderate spoilage and quick spoilage options she can piece together for satisfying and healthy meal without increasing waste. Pt overall doing excellent analyzing her behaviors around food. Pt noticing she is planning for more F/V in the home which is newer behavior. Pt using doordash less but still doing drive through several days per week. f/u in 2w to continue education and supportive nutrition therapy. Electronically Signed by: Radha Phoenix 02/03/22 15:48 Clinical Dietitian [address] [address]
== END ==
PROVIDERS: PCP Registered Nurse Diabetes Educator; Referring Provider Registered Nurse Diabetes Educator; Visit Provider Registered Nurse Diabetes Educator
DX: E28.2 Polycystic ovarian syndrome (principal); Z71.3 Dietary counseling and surveillance
CPT/HCPCS: 97803

== ENCOUNTER → 2022-02-17 12:51 | Outpatient (CLI) | payer BC, SELFPAY ==
--- NOTE | 2022-02-17 13:00 | DIET.OUTPTC ---
Dietary Outpatient Consultation Note Consultation Date: 02/17/2022 Nutrition f/u conducted using Vsee video conference, pt in her home office, RD in hospital office, pt agrees to visit. Visit: PCOS, weight management and health surveillance Pt continues to mostly avoid eating out and has continued to be mindful about F/V consumption, often bringing grapes and lamas pepper slices to work to snack on. Pt feeling more confident with her hunger scale and trying to trust her fullness scale, however, still with some concerns on portion size. Pt unclear if her daily portions higher than they should be. Pt anticipating some higher kcal intake and feels she is having internal conversations on restricting her intake before or after a high kcal meal. Wants to ensure she is participating in healthy self-talk. Interventions: 1. Reinforced pts good continued behaviors around F/V intake. Pt had been having difficulty finding items she was willing to purchase, now always keeps onions, garlic, lamas peppers, mushrooms, grapes in refrigerator and states they are not spoiling before she uses them. 2. Discussed pts internal messaging around restricting behaviors with high kcal meal anticipation. Let pt know it is reasonable to cut meals into smaller size anticipating large meal. Encouraged pt to focus on plate balance, if she anticipates meal low in F/V, increase intake F/V earlier or later in day. If meal is high in fat or high in refined carbs, recc pt limit these components in other meals that day to find overall balance in the day. F/u in 2w for continued support and education. Electronically Signed by: Radha Phoenix 02/17/22 13:00 Clinical Dietitian [address] [address]
== END ==
PROVIDERS: PCP Registered Nurse Diabetes Educator; Referring Provider Registered Nurse Diabetes Educator; Visit Provider Registered Nurse Diabetes Educator
DX: E28.2 Polycystic ovarian syndrome (principal); Z71.3 Dietary counseling and surveillance
CPT/HCPCS: 97803

== ENCOUNTER → 2022-04-14 15:48 | Outpatient (CLI) | payer BC, SELFPAY ==
--- NOTE | 2022-04-14 16:15 | DIET.OUTPTC ---
Dietary Outpatient Consultation Note Consultation Date: 04/14/2022 Nutrition f/u conducted using Vsee video conference, pt in her home office, RD in hospital office, pt agrees to visit. Visit: PCOS, weight management and health surveillance Pt in busy season at work, kettle counting and earlier days with fewer days off. Pt noticed she has skipped breakfast the past 2d which led to ordering lunch out because she also didn't pack lunch. Pt feels this due to not getting out of bed early enough in morning in order to eat breakfast. Pt did 3 days of fitness challenge but stopped after that. She still has 3d/w as her goal and will work on that over the next 2w. Interventions: 1. Pt set goal to get out of bed no later than 7:30am so she can make breakfast. Pt will make a batch of overnight oats and continue making through this busy season. Pt will be sure to bring at least cheese and crackers to work at lunchtime. Pt may be eating out more on account of her busy schedule, however, she will aim to find options high in dietary fiber. F/u in 2w to continue monitoring during busy season at work. overnight oats Electronically Signed by: Radha Phoenix 04/14/22 16:15 Clinical Dietitian [address] [address]
== END ==
PROVIDERS: PCP Registered Nurse Diabetes Educator; Referring Provider Registered Nurse Diabetes Educator; Visit Provider Registered Nurse Diabetes Educator
DX: E28.2 Polycystic ovarian syndrome (principal); Z71.3 Dietary counseling and surveillance
CPT/HCPCS: 97803

== ENCOUNTER → 2022-04-28 16:04 | Outpatient (CLI) | payer BC, SELFPAY ==
--- NOTE | 2022-04-28 16:08 | DIET.OUTPTC ---
Dietary Outpatient Consultation Note Consultation Date: 04/28/2022 Nutrition f/u conducted using Vsee video conference, pt in her home office, RD in hospital office, pt agrees to visit. Visit: PCOS, weight management and health surveillance Pt currently working 7d per week, busiest season of year at [employer]. Pt eating cereal at dinner more than what she would like and more take out meals. Pt having trouble carving out time during the day to eat. Pt doing instacart tomorrow- adding jelly, grapes-will wash, destem and bag, will also bag up crackers. Reminded pt on importance of stopping to fuel body and taking breaks at work. Pt will idea generate a few take out meals with moderate kcals and high fiber so when she is feeling busy and can't cook, still makes reasonable choices. F/u in 2w to reflect on busy season being over and work on plan to strategize for next year. Electronically Signed by: Radha Phoenix 04/28/22 16:08 Clinical Dietitian [address] [address]
== END ==
PROVIDERS: PCP Registered Nurse Diabetes Educator; Referring Provider Registered Nurse Diabetes Educator; Visit Provider Registered Nurse Diabetes Educator
DX: E28.2 Polycystic ovarian syndrome (principal); Z71.3 Dietary counseling and surveillance
CPT/HCPCS: 97803

== ENCOUNTER → 2022-05-12 15:55 | Outpatient (CLI) | payer BC, SELFPAY ==
--- NOTE | 2022-05-12 15:57 | DIET.OUTPTC ---
Dietary Outpatient Consultation Note Consultation Date: 05/12/2022 Nutrition f/u conducted using Vsee video conference, pt in her home office, RD in hospital office, pt agrees to visit. Visit: PCOS, weight management and health surveillance. Pt finding when she is on and having to supervise tasks she disregarding hunger and forgets to eat. Feels this contributes to her erratic eating and obesity as she will default to fast food when getting overtired. Pt feels she may have texture aversions- often choosing fried chicken from fast foods and not so interested in cooking it from raw. Discussed texture aversion, exposure being gold standard for resistance to foods. Pt feels increased intake processed foods and sugar making her sleep poorly, less than 5h per night. Pt eager to get back on track with diet to see how sleep improves. Goals: 1. Clean out refrigerator and kitchen reset, ideally in morning while listening to podcast or watching show. 2. Wash grapes and slice lamas peppers. 3. Question automatic thoughts around eating out, trying to minimize from amount in April. f/u in 2w to continue education and monitoring. Electronically Signed by: Radha Phoenix 05/12/22 15:57 Clinical Dietitian [address] [address]
== END ==
PROVIDERS: PCP Registered Nurse Diabetes Educator; Referring Provider Registered Nurse Diabetes Educator; Visit Provider Registered Nurse Diabetes Educator
DX: E28.2 Polycystic ovarian syndrome (principal); E66.9 Obesity, unspecified; Z71.3 Dietary counseling and surveillance
CPT/HCPCS: 97803

== ENCOUNTER → 2022-05-26 16:04 | Outpatient (CLI) | payer BC, SELFPAY ==
--- NOTE | 2022-05-26 16:08 | DIET.OUTPTC ---
Dietary Outpatient Consultation Note Consultation Date: 05/26/2022 Nutrition f/u conducted using Vsee video conference, pt in her home office, RD in hospital office, pt agrees to visit. Visit: PCOS, weight management and health surveillance. Weight: 268# Update on goals from last visit: 1. 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 2. Wash grapes and slice lamas peppers. -Success, has grapes and lamas peppers (unsliced) 3. Question automatic thoughts around eating out, trying to minimize from amount in April. Fast food twice- most common when rushing, other eating out related to work meetings. Pt going to have pad grenadian leftovers- adding egg and snap peas. Pt has [employer] membership through June. Thinking about ending subscription and going grocery shopping in person. Discussed strategies such as shopping Sundays after latter day, on lunch break, having snack in store before making list and shopping, having a clare list and a specialty list and shopping separately. f/u in 2w to continue monitoring and education. Electronically Signed by: Radha Phoenix 05/26/22 16:08 Clinical Dietitian [address] [place] [address]
== END ==
PROVIDERS: PCP Registered Nurse Diabetes Educator; Referring Provider Registered Nurse Diabetes Educator; Visit Provider Registered Nurse Diabetes Educator
DX: E28.2 Polycystic ovarian syndrome (principal); Z71.3 Dietary counseling and surveillance
CPT/HCPCS: 97803

== ENCOUNTER → 2022-06-09 15:30 | Outpatient (CLI) | payer BC, SELFPAY ==
--- NOTE | 2022-06-09 15:31 | DIET.OUTPTC ---
Dietary Outpatient Consultation Note Consultation Date: 06/09/2022 Pt in home office, RD in hospital office, pt agrees to telehealth visit using [employer]. 36y F attending f/u nutrition visit for PCOS and weight management. Pt currently working until 8pm on Wednesdays and , long days. Tuesdays off, coming in a little late, Fridays leave a little early. Often works Saturdays. Pt has new cat, spending a lot of energy and time with both cats to get them acclimated to each other. Pt noticing she is skipping breakfast and not focusing well on nutrition. Pt considering coming to work late, 10am, instead of 9am so she can successfully eat breakfast and complete chores. Pt Goals: 1. Identify life values and how health and nutrition fit into them. 2. Pt will go to work at 10am each day next week to see if it supports a better morning routine. F/u in 2w via telehealth Electronically Signed by: Radha Phoenix 06/09/22 15:31 Clinical Dietitian [address] [address]
== END ==
PROVIDERS: PCP Registered Nurse Diabetes Educator; Referring Provider Registered Nurse Diabetes Educator; Visit Provider Registered Nurse Diabetes Educator
DX: E28.2 Polycystic ovarian syndrome (principal); Z71.3 Dietary counseling and surveillance
CPT/HCPCS: 97803

== ENCOUNTER → 2022-06-23 15:32 | Outpatient (CLI) | payer BC, SELFPAY ==
--- NOTE | 2022-06-23 15:35 | DIET.OUTPTC ---
Dietary Outpatient Consultation Note Consultation Date: 06/23/2022 Pt in home office, RD in hospital office, pt agrees to telehealth visit using [employer] soy. 36y F attending f/u nutrition visit for PCOS and weight management. Pt feels her time has been a little better managed now that cats are acclimated to each other. Pt Goals: 1. Identify life values and how health and nutrition fit into them.- did not do, did think about it. 2. Pt will go to work at 10am each day next week to see if it supports a better morning routine. -pt did this a few times and felt it was better opportunity to eat breakfast at home. Pt will try to continue this on Wednesdays and . Pt wants to try Wegovy medication to spur weight loss. Pt has been able to maintain her current weight x2y without weight gain but is not seeing weight loss. Discussed pros/cons of this medication[facility] 4mo to test for tolerance and effectiveness. F/u in 2w to continue monitoring/education. Electronically Signed by: Radha Phoenix 06/23/22 15:35 Clinical Dietitian [address] [address]
== END ==
PROVIDERS: PCP Registered Nurse Diabetes Educator; Referring Provider Registered Nurse Diabetes Educator; Visit Provider Registered Nurse Diabetes Educator
DX: E28.2 Polycystic ovarian syndrome (principal); Z71.3 Dietary counseling and surveillance
CPT/HCPCS: 97803

== ENCOUNTER → 2022-07-07 15:40 | Outpatient (CLI) | payer BC, SELFPAY ==
--- NOTE | 2022-07-07 15:41 | DIET.OUTPTC ---
Dietary Outpatient Consultation Note Consultation Date: 07/07/2022 Pt in home office, RD in hospital office, pt agrees to telehealth visit using [employer] soy. 36y F attending telehealth f/u for help with weight management for PCOS. Pt remains interested in Wegovy medication to help with weight loss. Hoping rhumatologist can help her get her inflammation in control so she has less pain to exercise. Pt discussing fatigue relating to inflammation and how it dismotivates her from exercising. Meeting with rhumatologist in September to switch to new biologic. Pt talking about reducing saturated fat in her diet, interested in lowering intake to support inflammation levels. Lactaid 2% milk in cereal or cooking Chobani Zero Sugar yogurt- no saturated fat avocado and olive oils likes cheeses-cheddar which is high in saturated fat. summer sausage Pt will look at sub for summer sausage and try some plant-based protein alternatives to see if she likes any. F/u in 2w to review saturated fat intake and swaps. Electronically Signed by: Radha Phoenix 07/07/22 15:41 Clinical Dietitian [address] [address]
== END ==
PROVIDERS: PCP Registered Nurse Diabetes Educator; Referring Provider Registered Nurse Diabetes Educator; Visit Provider Registered Nurse Diabetes Educator
DX: E28.2 Polycystic ovarian syndrome (principal); Z71.3 Dietary counseling and surveillance
CPT/HCPCS: 97803

== ENCOUNTER → 2022-07-21 15:50 | Outpatient (CLI) | payer BC, SELFPAY ==
--- NOTE | 2022-07-22 10:57 | DIET.OUTPTC ---
Dietary Outpatient Consultation Note Consultation Date: 07/21/2022 Pt at home office, RD in hospital office, pt agrees to telehealth visit using [employer] platform. Pt approved to start Wegovy from PCP, beginning 0.5mg dose weekly and working up to effective dose. Educated on side effects and signs to look out for regarding adequate dosing to curb appetite without turning off appetite. Pt can expect to see 10-20% weight loss over next several months (26-52#). Pt with excellent behavior modifications developed over past 2y of nutrition counselling which will support weight loss maintenance. Pt likely to benefit from weight reduction- reduced inflammatory markers, improve hormone levels with PCOS, reduce cardiovascular risk factors and cholesterol, increased ability to tolerate physical activity and her personal goal to not use seatbelt document imaging specialist when travelling on an airplane. f/u in 2w to assess med tolerance and meal planning to ensure adequate intake. Electronically Signed by: Radha Phoenix 07/22/22 10:57 Clinical Dietitian [address] [place] [address]
== END ==
PROVIDERS: PCP Registered Nurse Diabetes Educator; Referring Provider Registered Nurse Diabetes Educator; Visit Provider Registered Nurse Diabetes Educator
DX: E28.2 Polycystic ovarian syndrome (principal); Z71.3 Dietary counseling and surveillance
CPT/HCPCS: 97803

== ENCOUNTER → 2022-08-04 15:40 | Outpatient (CLI) | payer BC, SELFPAY ==
--- NOTE | 2022-08-04 15:43 | DIET.OUTPTC ---
Dietary Outpatient Consultation Note Consultation Date: 08/04/2022 Pt in her home, RD in hospital office. Pt agrees to telehealth visit using [employer] soy. Pt just started week 2 of Wegovy injections at 0.25mg. She is currently 269.4#. Pt noticed some nausea and had one case of vomiting with first dose but only minimal nausea to date since. Pt consuming breakfast, lunch, and a smoothie most days. She notices some acid reflux if she lays down too soon after eating and does notice early satiety and a lowered interest in food in general. All expected results of medication. Discussed ensuring pt gets enough protein daily via meals and smoothies. Also discussed slowed gastric emptying with medication- liquid foods like soup and smoothies tend to be better tolerated. Pt will discuss with PCP moving up to 0.5mg dose after this refill to identify best dosage for most desired results. f/u in 6w. Electronically Signed by: Radha Phoenix 08/04/22 15:43 Clinical Dietitian [address] [address]
== END ==
PROVIDERS: PCP Registered Nurse Diabetes Educator; Referring Provider Registered Nurse Diabetes Educator; Visit Provider Registered Nurse Diabetes Educator
DX: E28.2 Polycystic ovarian syndrome (principal); Z71.3 Dietary counseling and surveillance
CPT/HCPCS: 97803

== ENCOUNTER → 2022-09-15 16:46 | Outpatient (CLI) | payer BC, SELFPAY ==
--- NOTE | 2022-09-15 16:55 | DIET.OUTPTC ---
Dietary Outpatient Consultation Note Consultation Date: 09/15/[address] 36[address] telehealth visit for help with weight management. Pt at home office, RD in hospital office, pt agrees to telehealth visit using Eyegroove soy. Pt upped her Wegovy dose to 0.5mg/w four weeks ago up from 0.25mg. Is not having any side effects at this time, is noticing early satiety but is eating 3 meals daily. Pt's current weight is 260# down from 269# 8 weeks ago. Pt plans to continue current dosage then go up to 0.75mg in 4 weeks and continue increasing up to dose which causes maximum of 2#/week weight loss without curbing appetite too much. Pt being followed by this RD twice monthly as well as her PCP to ensure safe titration and adequate PO intake. F/u in 2w to assess weight status and progression. Electronically Signed by: Radha Phoenix 09/15/22 16:55 Clinical Dietitian [address] [id number]
== END ==
PROVIDERS: PCP Registered Nurse Diabetes Educator; Referring Provider Registered Nurse Diabetes Educator; Visit Provider Registered Nurse Diabetes Educator
DX: E28.2 Polycystic ovarian syndrome (principal); Z71.3 Dietary counseling and surveillance
CPT/HCPCS: 97803